=== PATIENT | male | born 1965 | race Caucasian/White ===

== ENCOUNTER 2024-12-13 12:22 | Emergency (ER) | payer OTHER ==
[~2024-12-13] VITALS: Ht 180.3 cm; Wt 81.6 kg
[2024-12-13] MEDS ORDERED: ACETAMINOPHEN ES 500 MG TABLET ONE (13:05)
[2024-12-13] MEDS: ACETAMINOPHEN ES 500 MG TABLET PO ONE (13:09)
[2024-12-13 14:22] VITALS: TEMP 98.3; O2SAT 100
== END 2024-12-13 14:05 ==
LOC: ER 12:49
DX: G89.29 Other chronic pain (principal); R45.6 Violent behavior; M79.606 Pain in leg, unspecified; R26.2 Difficulty in walking, not elsewhere classified; Z59.00 Homelessness unspecified; Z86.73 Personal history of transient ischemic attack (TIA), and cerebral infarction without residual deficits